=== PATIENT | female | born 1960 | race Caucasian/White ===

== ENCOUNTER 2016-10-15 14:57 | Emergency (ER) | payer OTHER ==
[~2016-10-15] VITALS: Ht 160 cm; Wt 86.9 kg
[~2016-10-15 14:57] MED LIST: ADVAIR 100-501 EACH IH; ADVAIR 250/501 DISK IH; Advair HFA 45/21 IH; BP MED; Ecotrin PO; FLEXERIL10 MG PO; FLONASE16 G1 BOTH NARES; MONTELUKAST SOD10 MG PO; NASACORT AQ16.5 GM NS; NITROSTAT,NITR0.4 M1 SL; PREDNISONE20 MG PO; PROTONIX40 MG PO; ZANTAC150 MG PO; ZESTRIL,PRINIVI10 M1 PO
[2016-10-15 16:17] LABS: EOSINOPHIL (%) 1.4 % (0-5); EOSINOPHIL COUNT 0.1 K/uL (0-0.3); HEMATOCRIT 38.7 % (36.0-46.0); IMMATURE GRANULOCYTE (%) 0.3 % (0.0-0.7); INSTRUMENT ABS NEUTROPHIL CT 5.5 K/uL; LYMPHOCYTE COUNT 3.2 K/uL (1.0-2.8); MCH 25.5 PG (29.0-34.0); MCHC 32.3 G/DL (30.0-36.0); MEAN PLAT.VOLUME 9.4 uM^3 (9.5-12.4); MONOCYTE (%) 6.5 % (3-12); MONOCYTE COUNT 0.6 K/uL (0-0.8); NEUTROPHIL (%) 57.8 % (45-76); NEUTROPHIL COUNT 5.5 K/uL (1.8-6.4); PLATELET COUNT 286 K/uL (156-360); RBC DIS.WIDTH-CV 13.5 % (11.8-14.6); RBC DIS.WIDTH-SD 38.7 % (39-53); WHITE BLOOD COUNT 9.6 K/uL (4.1-10.2)
[2016-10-15 16:34] LABS: CHLORIDE 106 mEq/L (99-109); POTASSIUM 3.4 mEq/L (3.7-5.4); SODIUM 142 mEq/L (136-147)
[2016-10-15 16:35] LABS: D-DIMER ELISA 0.25 mg/L FEU (< 0.57); GLUCOSE 94 mg/dL (70-99)
[2016-10-15 16:37] LABS: ANION GAP 12 MEQ/L (2-14)
[2016-10-15 16:39] LABS: GFR ESTIMATE (CALCULATED) > 59 mL/min/
[2016-10-15 16:40] LABS: TROP-I INTERPRETATION NEGATIVE; TROPONIN-I < 0.01 ng/mL (0.0-0.30); UREA NITROGEN (BUN) 12 mg/dL (9-23)
[2016-10-15] MEDS ORDERED: ATIVAN0.5 MG PO (16:49)
[2016-10-15 17:10] VITALS: BP 145/67
== END 2016-10-15 17:46 | disposition home or self-care (01) ==
LOC: EME 14:57
PROVIDERS: Emergency Medicine
DX: R07.89 Other chest pain (principal); F41.9 Anxiety disorder, unspecified; K21.9 Gastro-esophageal reflux disease without esophagitis; J45.909 Unspecified asthma, uncomplicated
CPT/HCPCS: 71020; 80048; 84443; 84484; 85025; 85379; 93005